=== PATIENT | female | born 1955 | race Caucasian/White ===

== ENCOUNTER → 2020-07-14 | Outpatient (CLI) | payer BC ==
[~2020-07-14] MED LIST: HYDR12.55; KP F1200 PO; LOSA25TA14; MULTCAP PO; NAPR220C24 PO; OMEP-218
== END ==
LOC: M LABSMTC 11:14
PROVIDERS: ATTEND Anesthesiology
DX: Z01.812 Encounter for preprocedural laboratory examination (principal); Z20.828 Contact with and (suspected) exposure to other viral communicable diseases
CPT/HCPCS: C9803; U0003

== ENCOUNTER 2020-07-19 10:50 | Day surgery (SDC) | payer BC ==
[~2020-07-19] VITALS: Ht 165.1 cm; Wt 73.8 kg
[~2020-07-19 10:50] MED LIST changes: +NS 1,000 ML IV ONE
--- NOTE | 2020-07-19 13:31 | ROOR ---
Patient Name: Mona Monroe Procedure Date: 07/19/2020 1:19 PM Date of : 1955 Age: 64 Room: [facility] Gender: Female Note Status: Finalized Procedure: Upper Endoscopy + Biopsies Indications: Heartburn, Exclusion of Cates's esophagus Providers: Eb Campbell MD Referring MD: Ranulfo Kaye Requesting Provider: Medicines: Monitored Anesthesia Care Complications: No immediate complications. Procedure: Pre-Anesthesia Assessment: - The heart rate, respiratory rate, oxygen saturations, blood pressure, adequacy of pulmonary ventilation, and response to care were monitored throughout the procedure. The Endoscope was introduced through the mouth, and advanced to the second part of duodenum. The upper GI endoscopy was accomplished without difficulty. The patient tolerated the procedure well. Findings: The Z-line was irregular and was found 40 cm from the incisors. Multiple biopsies were obtained with cold forceps for evaluation to rule out Cates's Esophagus randomly at the gastroesophageal junction. A small hiatal hernia was present. No other significant abnormalities were identified in a careful examination of the stomach. The exam of the duodenum was otherwise normal. Impression: - Z-line irregular, 40 cm from the incisors. - Small hiatal hernia. - Multiple biopsies were obtained at the gastroesophageal junction. - The examination was otherwise normal. Recommendation: - Patient has a contact number available for emergencies. The signs and symptoms of potential delayed complications were discussed with the patient. Return to normal activities tomorrow. Written discharge instructions were provided to the patient. - High fiber diet. - Discharge patient to home. - Continue present medications. - Await pathology results. - Telephone GI clinic for pathology results in 1 week. - Return to referring physician. - The findings and recommendations were discussed with the patient. Eb Campbell MD Eb Campbell MD 07/19/2020 1:29:48 PM Electronically signed by Eb Campbell MD Number of Addenda: 0 Note Initiated On: 07/19/2020 1:19 PM Estimated Blood Loss: Estimated blood loss: none.
--- NOTE | 2020-07-19 13:45 | ROOR ---
Patient Name: Mona Monroe Procedure Date: 07/19/2020 1:20 PM Date of : 1955 Age: 64 Room: [facility] Gender: Female Note Status: Finalized Procedure: Total Colonoscopy to Cecum Indications: Screening in patient at increased risk: Colorectal cancer in brother before age 60 Providers: Eb Campbell MD Referring MD: Ranulfo Kaye Requesting Provider: Medicines: Monitored Anesthesia Care Complications: No immediate complications. Procedure: Pre-Anesthesia Assessment: - The heart rate, respiratory rate, oxygen saturations, blood pressure, adequacy of pulmonary ventilation, and response to care were monitored throughout the procedure. The Colonoscope was introduced through the anus and advanced to the cecum, identified by appendiceal orifice and ileocecal valve. The colonoscopy was performed without difficulty. The patient tolerated the procedure well. The quality of the bowel preparation was excellent. Findings: The perianal and digital rectal examinations were normal. Non-bleeding internal hemorrhoids were found during retroflexion. The hemorrhoids were medium-sized and Grade II (internal hemorrhoids that prolapse but reduce spontaneously). No other significant abnormalities were identified in a careful examination of the remainder of the colon. The exam was otherwise without abnormality on direct and retroflexion views. Impression: - Non-bleeding internal hemorrhoids. - The examination was otherwise normal on direct and retroflexion views. - No specimens collected. - The exam was otherwise normal to the cecum. Recommendation: - Patient has a contact number available for emergencies. The signs and symptoms of potential delayed complications were discussed with the patient. Return to normal activities tomorrow. Written discharge instructions were provided to the patient. - High fiber diet. - Discharge patient to home. - Continue present medications. - Repeat colonoscopy in 5 years for screening purposes. - Return to referring physician. - The findings and recommendations were discussed with the patient. Eb Campbell MD Eb Campbell MD 07/19/2020 1:44:21 PM Electronically signed by Eb Campbell MD Number of Addenda: 0 Note Initiated On: 07/19/2020 1:20 PM Estimated Blood Loss: Estimated blood loss: none.
[2020-07-19] MEDS ORDERED: LIDOCAINE 2% 100MG/5ML SDV (FOR ANES.) As Ordered ONE (13:58)
[2020-07-19] MEDS ORDERED: propofoL 200 MG/20 ML VIAL As Ordered ONE (13:58)
[2020-07-19 14:03] VITALS: BP 169/89
== END 2020-07-19 14:22 | disposition home or self-care (01) ==
LOC: M OPP 10:50
PROVIDERS: ATTEND Internal Medicine Gastroenterology
DX: Z12.11 Encounter for screening for malignant neoplasm of colon (principal); Z80.0 Family history of malignant neoplasm of digestive organs; K64.1 Second degree hemorrhoids; K22.8 Other specified diseases of esophagus; K44.9 Diaphragmatic hernia without obstruction or gangrene; R12 Heartburn; Z79.82 Long term (current) use of aspirin; Z79.899 Other long term (current) drug therapy; Z88.0 Allergy status to penicillin
CPT/HCPCS: 43239; 88305; G0105

== ENCOUNTER 2025-06-27 09:29 | Day surgery (SDC) | payer MEDICARE ==
[~2025-06-27] VITALS: Ht 165.1 cm; Wt 75.7 kg
[~2025-06-27 09:29] MED LIST changes: +ALEV220T22 PO; +HYDR12.510 PO; +LOSA25TA13; +LOSA25TA13 PO; -LOSA25TA14; -NS 1,000 ML IV ONE; +OMEG350C PO; +OMEP-173; -OMEP-218; +OMEP1CAP73 PO; +THERTAB52 PO; +VIBE75TA PO
[2025-06-27] MEDS ORDERED: LIDOCAINE 2% 100 MG/5 ML SDV (FOR ANES.) As Ordered ONE (10:02)
[2025-06-27 10:24] VITALS: TEMP 98.2
[2025-06-27 10:40] VITALS: BP 121/73; O2SAT 100
== END 2025-06-27 10:45 | disposition home or self-care (01) ==
LOC: M OPP 09:29
PROVIDERS: ATTEND Internal Medicine Gastroenterology
DX: Z12.11 Encounter for screening for malignant neoplasm of colon (principal); K64.0 First degree hemorrhoids; Z80.0 Family history of malignant neoplasm of digestive organs; G47.30 Sleep apnea, unspecified; Z88.0 Allergy status to penicillin; Z79.899 Other long term (current) drug therapy